=== PATIENT | male | born 1990 | race Caucasian/White ===

== ENCOUNTER 2017-02-19 20:54 | Emergency (ER) | payer OTHER | END 2017-02-20 00:40 | disposition home or self-care (01) | LOC: ER1 20:54 | DX: S43.101A Unspecified dislocation of right acromioclavicular joint, initial encounter (principal); Z87.891 Personal history of nicotine dependence; W17.89XA Other fall from one level to another, initial encounter; Y92.009 Unspecified place in unspecified non-institutional (private) residence as the place of occurrence of the external cause | CPT/HCPCS: 73030; 99283 ==